=== PATIENT | female | born 1990 | race Caucasian/White ===

== ENCOUNTER 2022-03-22 08:53 | Outpatient (CLI) | payer OTHER, SELFPAY | END 2022-03-22 08:54 | disposition home or self-care (01) | PROVIDERS: PCP Emergency Medicine; Visit Provider Emergency Medicine | DX: Z13.29 Encounter for screening for other suspected endocrine disorder (principal); Z13.21 Encounter for screening for nutritional disorder | CPT/HCPCS: 80053; 82306; 84443 ==